=== PATIENT | male | born 1975 | race Asian ===

== ENCOUNTER 2024-02-16 14:19 | Emergency (ER) | payer OTHER, SELFPAY ==
[2024-02-16 14:21] VITALS: BP 126/79
--- NOTE | 2024-02-16 15:25 | ED.GENMED ---
History of Present Illness
General
Chief Complaint: Chest Pain
Source: patient
Time Seen by Provider: 02/16/24 14:49
History of Present Illness
History of Present Illness:
48-year-old male presents to the emergency room for evaluation of chest discomfort and shortness of breath. Patient was awoken from sleep at 6 AM due to the discomfort. He describes it as a heaviness or tightness in the upper chest. It has been
constant since 6 AM. He feels like taking a deep breath makes it somewhat worse. He also feels short of breath with exertion. No fever or chills. No cough. Patient denies any recent travel or periods of immobilization. Patient did have some
discomfort in his left calf which seems to be somewhat improved now.
Phy Exam
Physical Exam
Physical Exam:
General: Awake, Alert, Oriented X3. No acute distress.
Vitals: unremarkable
Head: Atraumatic
Eyes: Pupils equal, EOMI
Throat: Airway intact, no exudates
Neck: Trachea midline
Lungs: Clear and equal b/l
Heart: Regular rate, no murmurs
Abd: Soft, Nontender, No pulsatile mass
Neuro: Nonfocal
Skin: Warm, dry, no rash
Extremities: pulses equal b/l, no edema
Course
Orders/Labs/Results
Orders:
Orders
02/16/24 14:20
EKG [Electrocardiogram (*1)] Urgent
Reason for Study: Chest Pain
EKG- Treatment ONCE
02/16/24 15:18
Complete Blood Count/With Diff Urgent
Comprehensive Metabolic Panel Urgent
Troponin I Urgent
02/16/24 15:25
D-Dimer Urgent
02/16/24 15:26
US Periph Venous LOWER Ext LT Urgent
Comment:
Reason For Exam: left calf pain, chest pain
02/16/24 17:17
CR Chest - 2 Views Urgent
Comment:
Reason For Exam: chest pain
Abnormal Lab Results
02/16/24
15:18
MCV 78.5 L fL
(80.0-94.0)
MCH 26.6 L pg
(27.0-31.0)
RDW 14.9 H %
(11.5-14.5)
Abs Immat Gran (auto) 0.1 H 10^3/uL
(0-0.05)
Absolute Neuts (auto) 7.2 H 10^3/uL
(1.4-6.5)
Absolute Monos (auto) 0.9 H 10^3/uL
(0.1-0.6)
Immature Gran % 0.6 H %
(0-0.5)
Lymphocytes % 19.1 L %
(20.5-51.1)
Glucose 100 H mg/dl
(70-99)
02/16/24 15:18
02/16/24 15:18
Vital Signs
Initial and Last Documented VS:
Initial Vital Signs
Temp Pulse Resp BP Pulse Ox
99.6 F 103 16 126/79 100
02/16/24 14:21 02/16/24 14:21 02/16/24 14:21 02/16/24 14:21 02/16/24 14:21
Last Documented Vital Signs
Temp Pulse Resp BP Pulse Ox
99.6 F 80 19 117/77 100
02/16/24 14:21 02/16/24 17:30 02/16/24 17:30 02/16/24 17:00 02/16/24 17:30
ED Attending Note
-
Portions of this chart may have been created with voice recognition software.� Occasional wrong word or��sound alike� substitutions may have occurred due to the inherent limitations of voice recognition software.
Discharge Plan
Departure
Patient Disposition: Home (Routine Discharge)
Date of Disposition: 02/16/24
Time of Disposition: 18:28
Patient with high blood pressure during this ER visit?: No
Condition: Good
Discharge Problem:
Chest pain
Instructions: Chest Pain CBC Follow Up
Referrals:
Bryan oD, DO [Family Provider] -
Interventions
Interventions:
*Risk Screen - Suicide Last Done: 02/16/24 14:21
*General Assessment Last Done: 02/16/24 14:21
*Neglect/Abuse Screening Last Done: 02/16/24 14:21
*ED COVID-19 Vaccine History Last Done: 02/16/24 15:30
ED- Cardiac Assessment Last Done: 02/16/24 15:29
Discharge Date and Time
Print Language: NEPALI
[2024-02-16 15:27] VITALS: BP 117/78
[2024-02-16 15:29] VITALS: BMI 29.0
[2024-02-16 15:38] LABS: % Basophils 0.5 % (0-2); % Eosinophils 1.5 % (0-6); % Immature Granulocytes 0.6 % (0-0.5); % Lymphocytes 19.1 % (20.5-51.1); % Neutrophils 69.3 % (42.2-75.2); Absolute Basophils 0.1 10^3/uL (0-0.2); Absolute Eosinophils 0.2 10^3/uL (0-0.7); Absolute Immature Granulocytes 0.1 10^3/uL (0-0.05); Absolute Monocytes 0.9 10^3/uL (0.1-0.6); Absolute Neutrophils 7.2 10^3/uL (1.4-6.5); Hematocrit 41.3 % (39.0-52.0); Mean Corp Hgb Conc. 33.9 g/dL (33.0-37.0); Mean Corpuscular Hgb 26.6 pg (27.0-31.0); Mean Corpuscular Volume 78.5 fL (80.0-94.0); Nucleated Red Blood Cells % 0 % (-); Platelet Count 307 10^3/uL (130-400); Red Blood Cell Count 5.26 10^6/uL (4.70-6.10); Red Cell Dist. Width 14.9 % (11.5-14.5); White Blood Cell Count 10.3 10^3/uL (4.8-10.8)
[2024-02-16 15:46] LABS: D-Dimer 0.31 ug/mlFEU (0.00-0.50)
[2024-02-16 15:46] LABS: ALT (SGPT) 26 U/L (0-50); AST (SGOT) 30 U/L (17-59); Albumin 4.2 g/dl (3.5-5.0); Alkaline Phosphatase 89 U/L (38-126); Blood Urea Nitrogen 14 mg/dl (9-20); Calcium 9.5 mg/dl (8.4-10.2); Carbon Dioxide 29 mmol/L (22-30); Chloride 105 mmol/L (98-107); Estimated Creatinine Clearance 83 ml/min; Glucose 100 mg/dl (70-99); Potassium 4.3 mmol/L (3.5-5.1); Sodium 142 mmol/L (135-145); Total Bilirubin 0.8 mg/dl (0.2-1.3); Total Protein 7.1 g/dl (6.3-8.2); eGFR > 60.00
[2024-02-16 15:59] LABS: Troponin I < 0.012 ng/ml
[2024-02-16 16:00] VITALS: BP 116/85
[2024-02-16 16:57] VITALS: BP 115/76
[2024-02-16 17:00] VITALS: BP 117/77
[2024-02-16] MEDS: TORADOL 15 MG IV (19:12)
== END 2024-02-16 19:13 | disposition home or self-care (01) ==
LOC: EMR 14:19
PROVIDERS: EMERGENCY PHYSICIAN Emergency Medicine; FAMILY PHYSICIAN Internal Medicine
DX: R07.89 Other chest pain (principal); R06.02 Shortness of breath
CPT/HCPCS: 99284; 96374; 71046; 80053; 84484; 85025; 85379; 93005; 93971

== ENCOUNTER → 2024-02-24 08:52 | Outpatient (REF) | payer OTHER, SELFPAY | LOC: RCS 08:52 | PROVIDERS: ATTENDING PHYSICIAN Internal Medicine Cardiovascular Disease; FAMILY PHYSICIAN Internal Medicine | DX: R07.2 Precordial pain (principal) | CPT/HCPCS: 93017 ==